=== PATIENT | male | born 1980 ===

== ENCOUNTER 2019-06-02 22:03 | Outpatient (REF) | payer MEDICAID, SELFPAY ==
[2019-06-03 10:06] LABS: Abs Immature Grans 0.02 k/cumm (0.0-0.09); Absolute Basophil Count 0.05 k/cumm (0.0-0.2); Absolute Eosinophil Count 0.28 k/cumm (0.0-0.7); Absolute Lymphocyte Count 2.87 k/cumm (1.2-3.4); Absolute Monocyte Count 0.44 k/cumm (0.11-0.7); Absolute Neutrophil Count 3.79 k/cumm (1.2-6.7); Basophils % 0.7; Eosinophils % 3.8; HCT 43.7 % (40.0-50.0); HGB 14.4 g/dL (13.5-17.5); Immature Grans % 0.3 %; Lymphocytes % 38.5; Mean Corpuscular Volume 94.2 fL (80-95); Mean Platelet Volume 11.9 fL (8.0-11.0); Monocytes % 5.9; Neutrophils % 50.8; Platelet Count 205 x1000/uL (130-400); RBC 4.64 m/cumm (4.50-6.00); RBC Distribution Width 12.6 % (11.8-14.1); White Blood Cell Count 7.45 k/cumm (4.4-10.8)
[2019-06-03 10:38] LABS: ALT 47 U/L (16-63); AST 38 U/L (15-37); Albumin 4.3 g/dL (3.4-5.0); Alkaline Phosphatase 101 U/L (46-116); Anion Gap 9.6 mmol/L (3-11); BUN 14 mg/dL (7-18); Bilirubin, Total 0.4 mg/dL (0.2-1.0); CO2 30.4 mmol/L (21.0-32.0); CREATININE 1.09 mg/dL (0.70-1.30); Chloride 102 mmol/L (98-107); Glucose 63 mg/dL (74-106); Potassium 4.4 mmol/L (3.5-5.1); Sodium 142 mmol/L (136-145); Total Protein 8.2 g/dL (6.4-8.2)
[2019-06-06 09:53] LABS: HBs Antibody, Quant <3.1 mIU/mL (See Note); Hep B Surface Ab Negative (See Note); Hepatitis B Core Antibody Negative (Negative); Hepatitis B Surface Antigen Negative (Negative); Hepatitis C Ab w Rflx HCV PCR Negative (Negative)
[2019-06-06 09:57] LABS: HIV-1/2 Ag & Ab Screen Negative (Negative)
[2019-06-06 11:37] LABS: Syphilis Serology (RPR) Negative (Negative)
== END 2019-06-02 22:23 ==
LOC: LBN 22:03
PROVIDERS: PCP Family Medicine; Visit Provider Family Medicine
DX: Z11.4 Encounter for screening for human immunodeficiency virus [HIV] (principal); F11.20 Opioid dependence, uncomplicated; Z20.2 Contact with and (suspected) exposure to infections with a predominantly sexual mode of transmission; Z11.59 Encounter for screening for other viral diseases
CPT/HCPCS: 80053; 86704; 86706; 86803; 87340; 87389; 85025; 86592